=== PATIENT | male | born 1960 | race Caucasian/White ===

== ENCOUNTER → 2020-05-14 | Outpatient (CLI) | payer OTHER ==
[~2020-05-14] MED LIST: B-12 PO; NATURAL CALM PO; TAMS-11 PO; [UNRECOGNIZED DRUG - OTHER] PO
[2020-05-14 14:54] LABS: BASOPHILS # (AUTO) 0.03 x10^3/uL (0-0.1); BASOPHILS % (AUTO) 0 % (0-1); EOSINOPHILS # (AUTO) 0.15 x10^3/uL (0-0.4); EOSINOPHILS % (AUTO) 2 % (1-7); LYMPHOCYTES # (AUTO) 2.48 x10^3/uL (1-3.4); LYMPHOCYTES % (AUTO) 30 % (22-44); MD NO; MEAN CORPUSCULAR HGB CONC 33.5 g/dL (33.2-36.2); MEAN CORPUSCULAR VOLUME 92.3 fL (81-97); MEAN PLATELET VOLUME 8.2 fL (7.4-10.4); MONOCYTES # (AUTO) 0.66 x10^3/uL (0.2-0.8); MONOCYTES % (AUTO) 8 % (2-9); NEUTROPHILS # (AUTO) 4.88 x10^3/uL (1.8-6.8); NEUTROPHILS % (AUTO) 59 % (42-75); PLATELET COUNT 253 x10^3/uL (130-400); RED BLOOD COUNT 5.73 x10^6/uL (4.38-5.82); RED CELL DISTRIBUTION WIDTH 13.7 % (9.4-14.8)
[2020-05-14 15:04] LABS: ALBUMIN 4.1 g/dL (3.4-5.0); ANION GAP 6 mmol/L (5-15); CALCIUM 8.9 mg/dL (8.5-10.1); CHLORIDE 108 mmol/L (98-107)
[2020-05-14 15:05] LABS: INTERNATIONAL NORMALIZED RATIO 1.07 (0.93-1.1); PROTHROMBIN TIME 11.4 Seconds (9.6-11.5)
[2020-05-14 15:07] LABS: ALANINE AMINOTRANSFERASE 26 U/L (12-78); ALKALINE PHOSPHATASE 84 U/L (45-117); BILIRUBIN,TOTAL 0.6 mg/dL (0.2-1.0); CREATININE 0.83 mg/dL (0.7-1.3); TOTAL PROTEIN 7.6 g/dL (6.4-8.2)
[2020-05-14 15:25] LABS: MICROSCOPIC INDICATED
== END | disposition home or self-care (01) ==
LOC: STAR 13:41
PROVIDERS: ATTEND Student in an Organized Health Care Education/Training Program
DX: Z01.818 Encounter for other preprocedural examination (principal); N40.1 Benign prostatic hyperplasia with lower urinary tract symptoms
CPT/HCPCS: 36415; 80053; 81001; 85025; 85610; 85730; 87086; 93005

== ENCOUNTER 2020-05-20 07:28 | Observation (INO) | payer OTHER, SELFPAY ==
[~2020-05-20] VITALS: Ht 177.8 cm; Wt 85.8 kg
[2020-05-20] MEDS ORDERED: LACTATED RINGERS 1,000 ML IV SCH (08:06)
[2020-05-20] MEDS ORDERED: CHLORHEXIDINE 15 ML UDC MM ONE (08:30)
[2020-05-20] MEDS ORDERED: LIDOCAINE-MPF 1%, 2ML INFIL ONE (08:30)
[2020-05-20] MEDS ORDERED: MIDAZOLAM 1 MG/ML, 2ML ONE (10:19)
[2020-05-20] MEDS ORDERED: FENTANYL PF 250 MCG/5ML ONE (10:19)
[2020-05-20] MEDS ORDERED: OPIUM/BELLADONNA SUPP.RECT 16.2-60 MG ONE (10:51)
[2020-05-20] MEDS ORDERED: BUPIVACAINE/PF 0.25% ONE (10:51)
[2020-05-20] MEDS ORDERED: SUGAMMADEX 200 MG/2 ML IVPush ONE (11:04)
[2020-05-20] MEDS ORDERED: LIDOCAINE-MPF 2% ,5ML ONE (11:04)
[2020-05-20] MEDS ORDERED: LABETALOL 5MG/ML, 20ML IV PRN (11:30)
[2020-05-20] MEDS ORDERED: PROMETHAZINE 25 MG/ML, 1ML IVPush PRN (11:30)
[2020-05-20] MEDS ORDERED: HYDROmorphone 1 MG/ML, 1ML INJ IVPush PRN (11:30)
[2020-05-20] MEDS ORDERED: ALBUTEROL SULFATE 2.5 MG/3 ML NPPB PRN (11:30)
[2020-05-20] MEDS ORDERED: METHOCARBAMOL 1,000 MG in DEXTROSE 5% 100 ML IV PRN (11:30)
[2020-05-20] MEDS ORDERED: LORazepam 2 MG/ML, 1ML IVPush PRN (11:30)
[2020-05-20] MEDS ORDERED: hydrALAzine 20 MG/ML, 1ML IV PRN (11:30)
[2020-05-20] MEDS ORDERED: ACETAMINOPHEN 325 MG TABLET PO PRN (11:30)
[2020-05-20] MEDS ORDERED: OXYcodone 5 MG/5 ML ORAL.SOL UDC PO PRN (11:30)
[2020-05-20] MEDS ORDERED: MEPERIDINE/PF 25MG/0.5ML IVPush PRN (11:30)
[2020-05-20] MEDS ORDERED: GLYCOPYRROLATE 0.2MG/1ML, 5ML ONE (13:42)
[2020-05-20] MEDS ORDERED: CEFAZOLIN 1,000 MG ONE (13:42)
[2020-05-20] MEDS ORDERED: ROCURONIUM 10MG/ML,5ML ONE (13:42)
[2020-05-20] MEDS ORDERED: ONDANSETRON 2MG/ML, 2ML ONE (13:42)
[2020-05-20] MEDS ORDERED: DEXAMETHASONE 4 MG/ML, 1ML ONE (13:42)
[2020-05-20] MEDS ORDERED: NEOSTIGMINE 1 MG/ML, 10ML ONE (13:42)
[2020-05-20] MEDS ORDERED: PROPOFOL 10 MG/ML, 20ML ONE (13:42)
[2020-05-20] MEDS ORDERED: HYDROmorphone 1 MG/ML, 1ML INJ IV PRN (14:00)
[2020-05-20] MEDS ORDERED: ONDANSETRON 2MG/ML, 2ML IV PRN (14:00)
[2020-05-20] MEDS ORDERED: HYDROmorphone 1 MG/ML, 1ML INJ ONE (14:14)
[2020-05-20] MEDS ORDERED: OXYcodone 5 MG/5 ML ORAL.SOL UDC ONE (14:14)
[2020-05-20] MEDS ORDERED: FENTANYL PF 100 MCG/2ML ONE (14:14)
[2020-05-20] MEDS: FENTANYL PF 100 MCG/2ML IV PRN ×2 (14:24→14:29)
[2020-05-20 15:09] LABS: ALBUMIN 3.5 g/dL (3.4-5.0); ANION GAP 0 mmol/L (5-15); CALCIUM 8.1 mg/dL (8.5-10.1); CHLORIDE 113 mmol/L (98-107); CREATININE 0.89 mg/dL (0.7-1.3)
[2020-05-20] MEDS: OXYcodone 5 MG/5 ML ORAL.SOL UDC PO PRN ×3 (15:53→23:27)
[2020-05-20] MEDS: SODIUM CHLORIDE 0.9% 1,000 ML IV SCH (17:33)
[2020-05-20] MEDS: ACETAMINOPHEN 325 MG TABLET PO SCH ×2 (17:36→23:27)
[2020-05-20 19:00] VITALS: BP 127/78
[2020-05-20] MEDS ORDERED: HYDROmorphone 2 MG/ML, 1ML ONE (20:56)
[2020-05-20] MEDS: DOCUSATE 100 MG CAPSULE PO SCH (21:00)
[2020-05-20] MEDS: CEFAZOLIN PMX 1GM/50ML 50 ML IVPB SCH (21:15)
[2020-05-20 23:30] VITALS: BP 113/70
[2020-05-21] MEDS: SODIUM CHLORIDE 0.9% 1,000 ML IV SCH ×2 (00:12→10:59)
[2020-05-21 01:35] VITALS: BP 110/64
[2020-05-21] MEDS: CEFAZOLIN PMX 1GM/50ML 50 ML IVPB SCH (05:40)
[2020-05-21] MEDS: OXYcodone 5 MG/5 ML ORAL.SOL UDC PO PRN ×2 (05:41→11:58)
[2020-05-21] MEDS: ACETAMINOPHEN 325 MG TABLET PO SCH ×2 (05:41→11:58)
[2020-05-21 06:07] LABS: ANION GAP 3 mmol/L (5-15); CALCIUM 8.4 mg/dL (8.5-10.1); CHLORIDE 111 mmol/L (98-107); CREATININE 0.73 mg/dL (0.7-1.3)
[2020-05-21] MEDS ORDERED: HEPARIN 5,000 UNITS/ML, 1ML SQ SCH (08:00)
[2020-05-21] MEDS: POLYETHYLENE GLYCOL 17 GM PACKET PO SCH ×2 (08:54→09:00)
[2020-05-21] MEDS: DOCUSATE 100 MG CAPSULE PO SCH (08:54)
[2020-05-21 08:57] VITALS: BP 103/63
== END 2020-05-21 15:11 | disposition home or self-care (01) ==
LOC: OUT 07:28 → 3N 16:30 → OUT 22:37 → 3N 22:37
PROVIDERS: ADMIT Student in an Organized Health Care Education/Training Program; ATTEND Student in an Organized Health Care Education/Training Program
DX: Z03.818 Encounter for observation for suspected exposure to other biological agents ruled out (principal); N40.1 Benign prostatic hyperplasia with lower urinary tract symptoms; R97.20 Elevated prostate specific antigen [PSA]
CPT/HCPCS: 36415; 55899; 80048; 82040; 85014; 86850; 86900; 87635; 88309; 96365; 96366; 96372; 96375; C1729; C1760; G0378; J0690; J1100; J1170; J1644; J2250; J2405; J2704; J2710; J2800; J3010; J3490; J7030; J7120; S2900

== ENCOUNTER 2020-05-29 12:56 | Outpatient (CLI) | payer OTHER | END 2020-05-29 23:59 | disposition home or self-care (01) | LOC: RAD 12:56 | PROVIDERS: ATTEND Student in an Organized Health Care Education/Training Program | DX: N40.1 Benign prostatic hyperplasia with lower urinary tract symptoms (principal); N32.89 Other specified disorders of bladder; Z90.79 Acquired absence of other genital organ(s) | CPT/HCPCS: 51600; 74430; Q9958 ==